=== PATIENT | female | born 1965 | race Caucasian/White ===

== ENCOUNTER 2021-03-15 09:00 | Outpatient (CLI) | payer OTHER ==
[~2021-03-15 09:00] MED LIST: MUSINEX; SYNTHROID50 MCG
== END 2021-03-15 09:30 | disposition home or self-care (01) ==
LOC: PPH VACUNA 09:00
PROVIDERS: ATTEND Emergency Medicine Pediatric Emergency Medicine
DX: Z23 Encounter for immunization (principal)